=== PATIENT | female | born 1975 | race Caucasian/White ===

== ENCOUNTER 2016-04-25 14:03 | Observation (INO) | payer SELFPAY ==
[~2016-04-25] VITALS: Ht 170.2 cm; Wt 140.6 kg
[2016-04-25] MEDS ORDERED: IV NORMAL SALINE 1000ML BAG 1,000 ML IV SCH (15:46)
--- NOTE | 2016-04-25 15:53 | PHYS DOC ---
Past Medical History Past Medical History: Diabetes-Type II, GERD, Hypertension, Other Additional Past Medical Histor: MORBID OBESITY, HERNIAS, ULCERS Past Surgical History: Other Additional Past Surgical Histo: Hernia; multiple upper GI surgeries Alcohol Use: None Drug Use: None Adult General Chief Complaint Chief Complaint: CHEST PAIN HPI HPI Patient is a 41 year old female who presents with multiple complaints, however primary complaint is chest pain. Patient states that she has been having substernal chest pain as well as right-sided chest pain that radiates to her right shoulder. Patient has history of hypertension and diabetes mellitus type 2. The patient states that she is having pressure in her chest and states that she has been experiencing numbness in her left upper extremity but denies focal weakness. Patient denies any fevers. The patient states that she currently does not have insurance and has not been able to take medications for diabetes or hypertension due to financial restraints. Patient has had intermittent nausea but denies vomiting. Patient denies any fevers or diarrhea. Review of Systems Review of Systems Constitutional: Generalized weakness, anxiety, denies fever or chills [] Eyes: Denies change in visual acuity, redness, or eye pain [] HENT: Denies nasal congestion or sore throat [] Respiratory: Shortness of breath [] Cardiovascular: Chest pain [] GI: Denies abdominal pain, nausea, vomiting, bloody stools or diarrhea [] : Denies dysuria or hematuria [] Musculoskeletal: Denies back pain or joint pain [] Integument: Denies rash or skin lesions [] Neurologic: Left-sided numbness [] Current Medications Current Medications Current Medications Medications (Trade) Dose Ordered Sig/Caitlyn Start Time Stop Time Status Last Admin Dose Admin Aspirin (Children'S Aspirin) 324 mg 1X ONCE 04/25/16 16:00 04/25/16 16:01 DC 04/25/16 16:20 324 MG Fentanyl Citrate 50 mcg 50 mcg PRN Q15MIN PRN 04/25/16 16:00 04/26/16 15:59 04/25/16 18:23 50 MCG Sodium Chloride (Iv Sodium Chloride 0.9% 1000ml Bag) 1,000 ml @ 100 mls/hr Q10H 04/25/16 15:46 04/26/16 01:45 04/25/16 16:21 100 MLS/HR Allergies Allergies Allergies Coded Allergies Type Severity Reaction Last Updated Verified morphine Allergy Intermediate 03/13/15 Yes oxycodone Allergy Intermediate 11/01/15 Yes shellfish derived Allergy Intermediate Rash 07/13/13 Yes sulfamethoxazole Allergy Intermediate rash 05/16/13 Yes trimethoprim Allergy Intermediate rash 05/16/13 Yes Physical Exam Physical Exam Constitutional: Alert, afebrile, morbidly obese, appears in mild discomfort. [] HENT: Normocephalic, atraumatic, bilateral external ears normal, oropharynx moist, no oral exudates, nose normal. [] Eyes: PERRLA, EOMI, conjunctiva normal, no discharge. [] Neck: Normal range of motion, no tenderness, supple, no stridor. [] Cardiovascular: Tachycardia, regular rhythm, no murmur [] Lungs & Thorax: Bilateral breath sounds clear to auscultation [] Abdomen: Bowel sounds normal, soft, no tenderness, no masses, no pulsatile masses. [] Skin: Warm, dry, no erythema, no rash. [] Back: No tenderness, no CVA tenderness. [] Extremities: No tenderness, no cyanosis, no clubbing, ROM intact, no edema. [] Neurologic: Alert and oriented X 3, normal motor function, normal sensory function, no focal deficits noted. [] Current Patient Data Vital Signs Vital Signs Date Time Temp Pulse Resp B/P Pulse Ox O2 Delivery O2 Flow Rate FiO2 04/25/16 17:23 90 166/90 Room Air 04/25/16 16:53 94 04/25/16 16:24 2.0 04/25/16 16:23 23 04/25/16 14:15 98.4 98.4 Lab Values Laboratory Tests Test 04/25/16 14:30 04/25/16 14:41 04/25/16 15:50 04/25/16 16:07 White Blood Count 8.5x10^3/uL (4.0-11.0) Red Blood Count 5.01x10^6/uL (3.50-5.40) Hemoglobin 13.8g/dL (12.0-15.5) Hematocrit 41.7% (36.0-47.0) Mean Corpuscular Volume 83fL (79-100) Mean Corpuscular Hemoglobin 28pg (25-35) Mean Corpuscular Hemoglobin Concent 33g/dL (31-37) Red Cell Distribution Width 14.7% (11.5-14.5) H Platelet Count 209x10^3/uL (140-400) Neutrophils (%) (Auto) 76% (31-73) H Lymphocytes (%) (Auto) 15% (24-48) L Monocytes (%) (Auto) 6% (0-9) Eosinophils (%) (Auto) 2% (0-3) Basophils (%) (Auto) 1% (0-3) Neutrophils # (Auto) 6.4x10^3uL (1.8-7.7) Lymphocytes # (Auto) 1.2x10^3/uL (1.0-4.8) Monocytes # (Auto) 0.5x10^3/uL (0.0-1.1) Eosinophils # (Auto) 0.2x10^3/uL (0.0-0.7) Basophils # (Auto) 0.1x10^3/uL (0.0-0.2) Sodium Level 137mmol/L (136-145) Potassium Level 3.7mmol/L (3.5-5.1) Chloride Level 99mmol/L (98-107) Carbon Dioxide Level 27mmol/L (21-32) Anion Gap 11 (6-14) Blood Urea Nitrogen 13mg/dL (7-20) Creatinine 1.0mg/dL (0.6-1.0) Estimated GFR (Cockcroft-Gault) 61.1 Glucose Level 222mg/dL (70-99) H Calcium Level 9.4mg/dL (8.5-10.1) Magnesium Level 1.9mg/dL (1.8-2.4) Total Bilirubin 0.2mg/dL (0.2-1.0) Direct Bilirubin < 0.1mg/dL (0.0-0.2) Aspartate Amino Transferase (AST) 28U/L (15-37) Alanine Aminotransferase (ALT) 49U/L (14-59) Alkaline Phosphatase 92U/L (46-116) Creatine Kinase 76U/L (26-192) Creatine Kinase MB (Mass) < 0.5ng/mL (0.0-3.6) Creatine Kinase MB Relative Index % (0-4) Troponin I Quantitative < 0.017ng/mL (0.000-0.055) IR-Uvr-G-Type Natriuretic Peptide 40pg/mL (0-124) Total Protein 7.5g/dL (6.4-8.2) Albumin 3.6g/dL (3.4-5.0) Glucose (Fingerstick) 190mg/dL (70-99) H Urine Collection Type Unknown Urine Color Yellow Urine Clarity Clear Urine pH 5.5 Urine Specific [place] 1.010 Urine Protein Negativemg/dL (NEG-TRACE) Urine Glucose (UA) 100mg/dL (NEG) Urine Ketones (Stick) Negativemg/dL (NEG) Urine Blood Negative (NEG) Urine Nitrite Negative (NEG) Urine Bilirubin Negative (NEG) Urine Urobilinogen Dipstick 0.2mg/dL (0.2 mg/dL) Urine Leukocyte Esterase Negative (NEG) Urine RBC 0/HPF (0-2) Urine WBC Occ/HPF (0-4) Urine Squamous Epithelial Cells Few/LPF Urine Bacteria Moderate/HPF (0-FEW) POC Urine HCG, Qualitative hcg negative (Negative) Test 04/25/16 16:25 O2 Saturation 95% (92-99) Arterial Blood pH 7.41 (7.35-7.45) Arterial Blood pCO2 at Patient Temp 36mmHg (35-46) Arterial Blood pO2 at Patient Temp 77mmHg (75-108) Arterial Blood HCO3 23mmol/L (21-28) Arterial Blood Base Excess -2mmol/L (-3-3) FiO2 28.0 Laboratory Tests 04/25/16 14:30 Laboratory Tests 04/25/16 14:30 EKG EKG Interpreted by me: Heart rate 94, sinus rhythm, leftward axis, normal intervals , no acute ST/T-wave abnormalities present [] Radiology/Procedures Radiology/Procedures [facility] [address] [place] [address] IMAGING REPORT Signed PATIENT: NIKOLAS MCKENNA ACCOUNT: [id number] : 1975 LOCATION: ER AGE: 41 SEX: F EXAM STATUS: REG ER ORD. PHYSICIAN: NIDA GONZALEZ MD REASON: chest pain,PREG TEST PROCEDURE: PORTABLE CHEST 1V Portable AP upright view CXR: Clinical indications: Chest pain today. Comparison: November 01, 2015. Findings: No acute lung infiltrate or pleural effusion or pulmonary edema or lung mass or pneumothorax is seen. The heart size, pulmonary vasculature, mediastinum and both denise are stable. Impression: No acute radiographic abnormality is seen. DICTATED and SIGNED BY: MADELIN SHAH MD DATE: 04/25/16 1624 CC: NIDA GONZALEZ MD; NO PCP ~ [] Course & Med Decision Making Course & Med Decision Making Pertinent Labs and Imaging studies reviewed. (See chart for details) Patient was given IV fluids, aspirin, fentanyl, and Zofran. On reevaluation, patient states she has persistent pain at this time. Patient's initial lab work does not show evidence of ischemia. The patient does not feel well at this time and would like to be admitted. I spoke with Dr. Peña who accepted care patient under observation status for further care. Dragon Disclaimer Dragon Disclaimer This electronic medical record was generated, in whole or in part, using a voice recognition dictation system. Departure Departure Impression: Primary Impression: Chest pain Additional Impressions: Type 2 diabetes mellitus Hypertension Disposition: 09 ADMITTED INPATIENT Admitting Physician: Anh Peña Condition: STABLE Referrals: NO PCP (PCP) Problem Qualifiers Primary Impression: Chest pain Chest pain type: unspecified Qualified Code: R07.9 - Chest pain, unspecified Additional Impressions: Type 2 diabetes mellitus Diabetes mellitus complication status: with hyperglycemia Diabetes mellitus mcc insulin use: unspecified mcc insulin use status Qualified Code : E11.65 - Type 2 diabetes mellitus with hyperglycemia Hypertension Hypertension type: essential hypertension Qualified Code: I10 - Essential ( primary) hypertension NIDA GONZALEZ MD Apr 25, 2016 15:53
--- NOTE | 2016-04-25 15:53 | EKG ---
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
[2016-04-25 15:55] LABS: BASO # 0.1 x10^3/uL (0.0-0.2); BASO % 1 % (0-3); EOS % 2 % (0-3); HEMATOCRIT 41.7 % (36.0-47.0); HEMOGLOBIN 13.8 g/dL (12.0-15.5); LYMPH # 1.2 x10^3/uL (1.0-4.8); LYMPH % 15 % (24-48); MEAN CORPUSCULAR HEMOGLOBIN 28 pg (25-35); MEAN CORPUSCULAR HGB CONC 33 g/dL (31-37); MEAN CORPUSCULAR VOLUME 83 fL (79-100); MONO % 6 % (0-9); NEUT % 76 % (31-73); PLATELET COUNT 209 x10^3/uL (140-400); RED BLOOD COUNT 5.01 x10^6/uL (3.50-5.40); RED CELL DISTRIBUTION WIDTH 14.7 % (11.5-14.5); WHITE BLOOD COUNT 8.5 x10^3/uL (4.0-11.0)
[2016-04-25 15:59] LABS: BILIRUBIN,URINE NEGATIVE (NEG); GLUCOSE,URINE 100 mg/dL (NEG); NITRITE,URINE NEGATIVE (NEG); PH,URINE 5.5; PROTEIN,URINE NEGATIVE (NEG-TRACE); UROBILINOGEN,URINE 0.2 mg/dL (0.2 mg/dL)
[2016-04-25] MEDS ORDERED: ASPIRIN 81 MG TAB.CHEW PO ONE (16:00)
[2016-04-25 16:07] LABS: ANION GAP 11 (6-14); BLOOD UREA NITROGEN 13 mg/dL (7-20); CALCIUM 9.4 mg/dL (8.5-10.1); CARBON DIOXIDE 27 mmol/L (21-32); CHLORIDE 99 mmol/L (98-107); GFR 61.1; GLUCOSE 222 mg/dL (70-99); POTASSIUM 3.7 mmol/L (3.5-5.1); SODIUM 137 mmol/L (136-145)
[2016-04-25 16:12] LABS: ALBUMIN 3.6 g/dL (3.4-5.0); ALK PHOS 92 U/L (46-116); ALT (SGPT) 49 U/L (14-59); AST (SGOT) 28 U/L (15-37); DIRECT BILIRUBIN < 0.1 mg/dL (0.0-0.2); MAGNESIUM 1.9 mg/dL (1.8-2.4); TOTAL BILIRUBIN 0.2 mg/dL (0.2-1.0); TOTAL PROTEIN 7.5 g/dL (6.4-8.2)
[2016-04-25 16:14] LABS: BACTERIA,URINE MODERATE /HPF (0-FEW); RBC,URINE 0 /HPF (0-2); SQUAMOUS EPITHELIAL CELL,UR FEW /LPF; WBC,URINE OCC /HPF (0-4)
[2016-04-25 16:21] LABS: CREATINE KINASE 76 U/L (26-192)
[2016-04-25] MEDS: FENTANYL PF 100 MCG/2 ML VIAL. IV PRN ×2 (16:21→18:23)
[2016-04-25 16:22] LABS: CKMB MASS < 0.5 ng/mL (0.0-3.6)
[2016-04-25 16:27] LABS: HCO3 ABG 23 mmol/L (21-28); PCO2 ABG 36 mmHg (35-46); PH ABG 7.41 (7.35-7.45); PO2 ABG 77 mmHg (75-108); SAT O2 ABG 95 % (92-99)
--- NOTE | 2016-04-25 17:18 | RAD ---
Portable AP upright view CXR: Clinical indications: Chest pain today. Comparison: November 01, 2015. Findings: No acute lung infiltrate or pleural effusion or pulmonary edema or lung mass or pneumothorax is seen. The heart size, pulmonary vasculature, mediastinum and both denise are stable. Impression: No acute radiographic abnormality is seen.
[2016-04-25 20:30] VITALS: BP 148/101
[2016-04-25] MEDS: IV NORMAL SALINE 1000ML BAG 1,000 ML IV SCH (20:50)
[2016-04-25] MEDS ORDERED: FENTANYL PF 100 MCG/2 ML VIAL. IV PRN (21:00)
[2016-04-25] MEDS ORDERED: ACETAMINOPHEN 325 MG TABLET. PO PRN (21:00)
[2016-04-25] MEDS ORDERED: ONDANSETRON PF 4 MG/2 ML VIAL. IV PRN (21:00)
[2016-04-25] MEDS ORDERED: DEXTROSE 50% 25 GM / 50ML DISP.SYRIN. IV PRN (21:15)
[2016-04-25] MEDS ORDERED: POTASSIUM CHLORIDE 20 MEQ TABLET.ER. PO ONE (21:30)
[2016-04-25] MEDS ORDERED: LIDO:MAALOX:DONNATAL 1:1:1 15 ML SINGLE DOSE SWSW PRN (21:30)
[2016-04-25] MEDS ORDERED: ENOXAPARIN 40 MG/0.4 ML DISP.SYRIN. SQ SCH (21:30)
[2016-04-25] MEDS ORDERED: PANTOPRAZOLE 40 MG TABLET. PO ONE (21:30)
--- NOTE | 2016-04-25 21:43 | PDOC1 ---
History and Physical Date of Admission Date of Admission DATE: 04/25/16 TIME: 21:42 Identification/Chief Complaint Chief Complaint multiple, chest pain, back pain, "feeling unwell" Source Source: Chart review, Patient History of Present Illness History of Present Illness Ms. Stoner is a 41 year old female admit from ER w/ chest pain. 10/25 substernal chest pain as well as right-sided to her right shoulder. She reports no insurance, could not get medical care, is worried about multiple things, DM2, htn, possible thyroid dysfunction, and she keeps repeating that she does not feel well and "knows something is wrong" She cannot articulate what exactly that means, but chest pressure and insomnia and numbness of her left arm at times, better currently she is not taking any medicines for htn for Dm2 current she believes she should apply for disability due to her arm weakness and leg pain and back pain, severe knee pain OA Past Medical History Cardiovascular: No pertinent hx Pulmonary: No pertinent hx GI: No pertinent hx Heme/Onc: No pertinent hx Hepatobiliary: No pertinent hx Psych: Anxiety Musculoskeletal: low back pain Family History Family History: No Significant Social History Smoke: No ALCOHOL: none Drugs: None Current Problem List Problem List Problems Medical Problems: (1) Chest pain Status: Acute Problems: Current Medications Current Medications Current Medications Aspirin (Children'S Aspirin) 324 mg 1X ONCE PO Last administered on 04/25/16 16:20; Start 04/25/16 at 16:00; Stop 04/25/16 at 16:01; Status DC Fentanyl Citrate 50 mcg 50 mcg PRN Q15MIN PRN IV PAIN GREATER THAN 3/10 Last administered on 04/25/16 18:23; Start 04/25/16 at 16:00; Stop 04/26/16 at 15:59 Sodium Chloride (Iv Sodium Chloride 0.9% 1000ml Bag) 1,000 ml @ 100 mls/hr Q10H IV Last administered on 04/25/16 16:21; Start 04/25/16 at 15:46; Stop at 01:45 Ondansetron HCl (Zofran) 4 mg PRN Q8HRS PRN IV NAUSEA/VOMITING; Start 04/25/16 at 21:00; Stop 04/26/16 at 20:59 Fentanyl Citrate 50 mcg 50 mcg PRN Q2HR PRN IV PAIN; Start 04/25/16 at 21:00; Stop 04/26/16 at 20:59 Sodium Chloride (Iv Sodium Chloride 0.9% 1000ml Bag) 1,000 ml @ 125 mls/hr Q8H IV Last administered on 04/25/16t 20:50; Start 04/25/16 at 20:50; Stop 04/26/16 at 20:49 Acetaminophen (Tylenol) 650 mg PRN Q4HRS PRN PO FEVER; Start 04/25/16 at 21:00; Stop 04/26/16 at 20:59 Potassium Chloride (Klor-Con) 40 meq 1X ONCE PO ; Start 04/25/16 at 21:30; Stop 04/25/16 at 21:31; Status DC Multi-Ingredient Mouthwash/Gargle (Gi Cocktail Single Dose) 15 ml PRN 1X PRN SWSW CHEST PAIN; Start 04/25/16 at 21:30 Pantoprazole Sodium (Protonix) 40 mg DAILYAC PO ; Start 04/26/16 at 07:30 Pantoprazole Sodium (Protonix) 40 mg 1X ONCE PO ; Start 04/25/16 at 21:30; Stop 04/25/16 at 21:31; Status DC Insulin Aspart (Novolog) 0-7 UNITS TIDWMEALS SQ ; Start 04/26/16 at 08:00 Dextrose 12.5 gm PRN Q15MIN PRN IV SEE COMMENTS; Start 04/25/16 at 21:15 Enoxaparin Sodium (Lovenox Per Pharmacy Prophylaxis Dosing) 1 each PRN DAILY PRN MC SEE COMMENTS; Start 04/25/16 at 21:30 Enoxaparin Sodium (Lovenox 40mg Syringe) 40 mg Q24H SQ ; Start 04/25/16 at 21:30 Zolpidem Tartrate (Ambien) 5 mg PRN QHS PRN PO INSOMNIA; Start 04/25/16 at 21:45 ; Status UNV Active Scripts Active Allergies Allergies: Coded Allergies: morphine (Verified Allergy, Intermediate, 03/13/15) oxycodone (Verified Allergy, Intermediate, 11/01/15) shellfish derived (Verified Allergy, Intermediate, Rash, 07/13/13) sulfamethoxazole (Verified Allergy, Intermediate, rash, 05/16/13) trimethoprim (Verified Allergy, Intermediate, rash, 05/16/13) ROS General: YES: Appetite, Fatigue, Malaise, No: Chills, Night Sweats, Other PSYCHOLOGICAL ROS: YES: Anxiety, Irritablity, No: Behavioral Disorder, Concentration difficultie, Decreased libido, Depression, Disorientation, Hallucinations, Hostility, Memory difficulties, Mood Swings, Obsessive thoughts, Other, Physical abuse, Sexual abuse, Sleep disturbances, Suicidal ideation Eyes: No Blurry vision, No Decreased vision, No Double vision, No Dry eyes, No Excessive tearing, No Eye Pain, No Itchy Eyes, No Loss of vision, No Other, No Photophobia, No Scotomata, No Uses contacts, No Uses glasses HEENT: YES: Heacaches, No: Epistaxis, Hearing change, Nasal congestion, Nasal discharge, Oral lesions, Other, Sinus pain, Sneezing, Snoring, Sore Throat, Tinnitus, Vertigo, Visual Changes, Vocal changes Respiratory: No: Cough, Hemoptysis, Orthopnea, Other, Pleuritic Pain, SOB with excertion, Shortness of breath, Sputum Changes, Stridor, Tachypnea, Wheezing Cardiovascular: yes Chest Pain, No Edema, No Lt Headedness, No Orthopnea, No Other, No Palpitations, No Paroxysmal Noc. Dyspnea Gastrointestinal: Yes Nausea, No Abdominal Pain, No Constipation, No Diarrhea, No Hematochezia, No Melena, No Other, No Vomiting Genitourinary: No , No , No , No , No , No , No , No Discharge, No Dysuria, No Flank Pain, No Frequency, No Hematuria, No Incontinence, No Other, No Pain, No Retention, No Urgency Musculoskeletal: Yes Gait Disturbance, Yes Joint Pain, Yes Joint Stiffness, Yes Joint Swelling, Yes Muscle Pain, Yes Muscular Weakness, Yes Pain In:, Yes Swelling In: (knee) Neurological: No Behavorial Changes, No Bowel/Bladder ControlChng, No Confusion , No Dizziness, No Gait Disturbance, No Headaches, No Impaired Coord/balance, No Memory Loss, No Numbness/Tingling, No Other, No Seizures, No Speech Problems , No Tremors, No Visual Changes, No Weakness Skin: Yes Dry Skin, No Acne, No Eczema, No Hair Changes, No Lumps, No Mole Changes, No Mottling, No Nail Changes, No Other, No Pruritus, No Rash, No Skin Lesion Changes Physical Exam General: Alert, Oriented X3, Cooperative, mild distress HEENT: Atraumatic, PERRLA, EOMI, Other (exopthalmos, and blepharosis) Lungs: Clear to auscultation, Normal air movement, Other (dorsocervical fat pad ) Heart: S1S2, no murmurs Abdomen: Normal bowel sounds, Soft Rectal Exam: not examined Extremities: No clubbing Skin: No rashes Neuro: Normal tone, Sensation intact, Cranial nerves 3-12 NL Psych/Mental Status: Other (odd affect, facial ticks) Vitals Vitals Vital Signs Date Time Temp Pulse Resp B/P Pulse Ox O2 Delivery O2 Flow Rate FiO2 04/25/16 19:50 87 17 151/101 94 Room Air 04/25/16 16:24 2.0 04/25/16 14:15 98.4 98.4 Labs Labs Laboratory Tests Test 04/25/16 14:30 04/25/16 14:41 04/25/16 15:50 04/25/16 16:07 White Blood Count 8.5x10^3/uL (4.0-11.0) Red Blood Count 5.01x10^6/uL (3.50-5.40) Hemoglobin 13.8g/dL (12.0-15.5) Hematocrit 41.7% (36.0-47.0) Mean Corpuscular Volume 83fL (79-100) Mean Corpuscular Hemoglobin 28pg (25-35) Mean Corpuscular Hemoglobin Concent 33g/dL (31-37) Red Cell Distribution Width 14.7% (11.5-14.5) Platelet Count 209x10^3/uL (140-400) Neutrophils (%) (Auto) 76% (31-73) Lymphocytes (%) (Auto) 15% (24-48) Monocytes (%) (Auto) 6% (0-9) Eosinophils (%) (Auto) 2% (0-3) Basophils (%) (Auto) 1% (0-3) Neutrophils # (Auto) 6.4x10^3uL (1.8-7.7) Lymphocytes # (Auto) 1.2x10^3/uL (1.0-4.8) Monocytes # (Auto) 0.5x10^3/uL (0.0-1.1) Eosinophils # (Auto) 0.2x10^3/uL (0.0-0.7) Basophils # (Auto) 0.1x10^3/uL (0.0-0.2) Sodium Level 137mmol/L (136-145) Potassium Level 3.7mmol/L (3.5-5.1) Chloride Level 99mmol/L (98-107) Carbon Dioxide Level 27mmol/L (21-32) Anion Gap 11 (6-14) Blood Urea Nitrogen 13mg/dL (7-20) Creatinine 1.0mg/dL (0.6-1.0) Estimated GFR (Cockcroft-Gault) 61.1 Glucose Level 222mg/dL (70-99) Calcium Level 9.4mg/dL (8.5-10.1) Magnesium Level 1.9mg/dL (1.8-2.4) Total Bilirubin 0.2mg/dL (0.2-1.0) Direct Bilirubin < 0.1mg/dL (0.0-0.2) Aspartate Amino Transf (AST/SGOT) 28U/L (15-37) Alanine Aminotransferase (ALT/SGPT) 49U/L (14-59) Alkaline Phosphatase 92U/L (46-116) Creatine Kinase 76U/L (26-192) Creatine Kinase MB (Mass) < 0.5ng/mL (0.0-3.6) Creatine Kinase MB Relative Index % (0-4) Troponin I Quantitative < 0.017ng/mL (0.000-0.055) ZB-Tib-G-Type Natriuretic Peptide 40pg/mL (0-124) Total Protein 7.5g/dL (6.4-8.2) Albumin 3.6g/dL (3.4-5.0) Glucose (Fingerstick) 190mg/dL (70-99) Urine Collection Type Unknown Urine Color Yellow Urine Clarity Clear Urine pH 5.5 Urine Specific [place] 1.010 Urine Protein Negativemg/dL (NEG-TRACE) Urine Glucose (UA) 100mg/dL (NEG) Urine Ketones (Stick) Negativemg/dL (NEG) Urine Blood Negative (NEG) Urine Nitrite Negative (NEG) Urine Bilirubin Negative (NEG) Urine Urobilinogen Dipstick 0.2mg/dL (0.2 mg/dL) Urine Leukocyte Esterase Negative (NEG) Urine RBC 0/HPF (0-2) Urine WBC Occ/HPF (0-4) Urine Squamous Epithelial Cells Few/LPF Urine Bacteria Moderate/HPF (0-FEW) Bedside Urine HCG, Qualitative hcg negative (Negative) Test 04/25/16 16:25 O2 Saturation 95% (92-99) Arterial Blood pH 7.41 (7.35-7.45) Arterial Blood pCO2 at Patient Temp 36mmHg (35-46) Arterial Blood pO2 at Patient Temp 77mmHg (75-108) Arterial Blood HCO3 23mmol/L (21-28) Arterial Blood Base Excess -2mmol/L (-3-3) FiO2 28.0 Laboratory Tests Test 04/25/16 14:30 04/25/16 14:41 04/25/16 15:50 04/25/16 16:07 White Blood Count 8.5x10^3/uL (4.0-11.0) Red Blood Count 5.01x10^6/uL (3.50-5.40) Hemoglobin 13.8g/dL (12.0-15.5) Hematocrit 41.7% (36.0-47.0) Mean Corpuscular Volume 83fL (79-100) Mean Corpuscular Hemoglobin 28pg (25-35) Mean Corpuscular Hemoglobin Concent 33g/dL (31-37) Red Cell Distribution Width 14.7% (11.5-14.5) Platelet Count 209x10^3/uL (140-400) Neutrophils (%) (Auto) 76% (31-73) Lymphocytes (%) (Auto) 15% (24-48) Monocytes (%) (Auto) 6% (0-9) Eosinophils (%) (Auto) 2% (0-3) Basophils (%) (Auto) 1% (0-3) Neutrophils # (Auto) 6.4x10^3uL (1.8-7.7) Lymphocytes # (Auto) 1.2x10^3/uL (1.0-4.8) Monocytes # (Auto) 0.5x10^3/uL (0.0-1.1) Eosinophils # (Auto) 0.2x10^3/uL (0.0-0.7) Basophils # (Auto) 0.1x10^3/uL (0.0-0.2) Sodium Level 137mmol/L (136-145) Potassium Level 3.7mmol/L (3.5-5.1) Chloride Level 99mmol/L (98-107) Carbon Dioxide Level 27mmol/L (21-32) Anion Gap 11 (6-14) Blood Urea Nitrogen 13mg/dL (7-20) Creatinine 1.0mg/dL (0.6-1.0) Estimated GFR (Cockcroft-Gault) 61.1 Glucose Level 222mg/dL (70-99) Calcium Level 9.4mg/dL (8.5-10.1) Magnesium Level 1.9mg/dL (1.8-2.4) Total Bilirubin 0.2mg/dL (0.2-1.0) Direct Bilirubin < 0.1mg/dL (0.0-0.2) Aspartate Amino Transf (AST/SGOT) 28U/L (15-37) Alanine Aminotransferase (ALT/SGPT) 49U/L (14-59) Alkaline Phosphatase 92U/L (46-116) Creatine Kinase 76U/L (26-192) Creatine Kinase MB (Mass) < 0.5ng/mL (0.0-3.6) Creatine Kinase MB Relative Index % (0-4) Troponin I Quantitative < 0.017ng/mL (0.000-0.055) JA-Ykr-W-Type Natriuretic Peptide 40pg/mL (0-124) Total Protein 7.5g/dL (6.4-8.2) Albumin 3.6g/dL (3.4-5.0) Glucose (Fingerstick) 190mg/dL (70-99) Urine Collection Type Unknown Urine Color Yellow Urine Clarity Clear Urine pH 5.5 Urine Specific [place] 1.010 Urine Protein Negativemg/dL (NEG-TRACE) Urine Glucose (UA) 100mg/dL (NEG) Urine Ketones (Stick) Negativemg/dL (NEG) Urine Blood Negative (NEG) Urine Nitrite Negative (NEG) Urine Bilirubin Negative (NEG) Urine Urobilinogen Dipstick 0.2mg/dL (0.2 mg/dL) Urine Leukocyte Esterase Negative (NEG) Urine RBC 0/HPF (0-2) Urine WBC Occ/HPF (0-4) Urine Squamous Epithelial Cells Few/LPF Urine Bacteria Moderate/HPF (0-FEW) Bedside Urine HCG, Qualitative hcg negative (Negative) Test 04/25/16 16:25 O2 Saturation 95% (92-99) Arterial Blood pH 7.41 (7.35-7.45) Arterial Blood pCO2 at Patient Temp 36mmHg (35-46) Arterial Blood pO2 at Patient Temp 77mmHg (75-108) Arterial Blood HCO3 23mmol/L (21-28) Arterial Blood Base Excess -2mmol/L (-3-3) FiO2 28.0 VTE Prophylaxis Ordered VTE Prophylaxis Devices: No VTE Pharmacological Prophylaxi: Yes Assessment/Plan Assessment/Plan chest pain, angina, r/o anxiety d/o, insomnia, try ambien, benadryl morbid obesity, BMI 43, dorsocervical fat pad, check AM cortisol to screen, consider supression test check TSH, T3, T4, exopthalmos on exam, multiple drug allergies odd behavior, possible psych disorder, MERCEDES SOLOMON MD Apr 25, 2016 21:43
[2016-04-25] MEDS ORDERED: DIPHENHYDRAMINE HCL 25 MG CAPSULE PO PRN (21:45)
[2016-04-25] MEDS ORDERED: ZOLPIDEM 5 MG TABLET. PO PRN (21:45)
[2016-04-25 22:59] VITALS: BP 153/98
[2016-04-25 23:00] VITALS: BP 149/95
[2016-04-26] MEDS: IV NORMAL SALINE 1000ML BAG 1,000 ML IV SCH ×2 (03:03→13:08)
[2016-04-26 03:30] VITALS: BP 143/89
[2016-04-26 04:43] LABS: BASO % 1 % (0-3); EOS % 4 % (0-3); HEMATOCRIT 39.2 % (36.0-47.0); LYMPH # 1.5 x10^3/uL (1.0-4.8); LYMPH % 25 % (24-48); MEAN CORPUSCULAR HEMOGLOBIN 27 pg (25-35); MEAN CORPUSCULAR HGB CONC 33 g/dL (31-37); MEAN CORPUSCULAR VOLUME 83 fL (79-100); MONO % 9 % (0-9); NEUT % 61 % (31-73); PLATELET COUNT 186 x10^3/uL (140-400); RED BLOOD COUNT 4.75 x10^6/uL (3.50-5.40); RED CELL DISTRIBUTION WIDTH 14.6 % (11.5-14.5); WHITE BLOOD COUNT 5.9 x10^3/uL (4.0-11.0)
[2016-04-26 05:02] LABS: CALCIUM 8.7 mg/dL (8.5-10.1); CREATININE 0.7 mg/dL (0.6-1.0); GFR 92.2
[2016-04-26 05:18] LABS: CHOLESTEROL/HDL RATIO 6.9
[2016-04-26 07:30] VITALS: BP 134/89
[2016-04-26] MEDS: INSULIN ASPART 300 UNITS/3 ML INSULN.PEN SQ SCH ×2 (08:00→12:09)
[2016-04-26] MEDS: PANTOPRAZOLE 40 MG TABLET. PO SCH ×2 (09:22→12:03)
--- NOTE | 2016-04-26 11:04 | PDOC2 ---
TABATHA HENDRICKS [facility] [employer] COORDINATOR 04/26/16 1104: CARDIAC CONSULT DATE OF CONSULT Date of Consult DATE: 04/26/16 TIME: 10:41 REASON FOR CONSULT Reason for Consult: Chest pain REFERRING PHYSICIAN Referring Physician: Korina SOURCE Source: Chart review, Patient HISTORY OF PRESENT ILLNESS HISTORY OF PRESENT ILLNESS This is a 41 yo female admitted for complains of chest pain. This was retrosternal, achy localized with no radiation. Has had some nausea bu no vomiting. She does have occasional hot flashes but no significant difference. Denies any SOA. She could not tell the the duration of her chest pain but it was on and off this weekend. Her chest pain is reproducible for both deep inspiration and palpation. She has hiatal hernia according to her and she does not take any OTC or Rx medications because she could not afford it. Alos PUD in the past. She has nasal congestion blaming it on her sinus but no fever or chills. Reports that she has been feeling achy in the last few days. She finally decided to go to an outpt clinic to have her BG and BP evaluated which she does not take medications for. Reports that she was diagnosed with this in 01/2016 but she just could not afford the medications. Denies any palpitations , dizziness. Denies CAD, VTE, falls or any recent injury. PAST MEDICAL HISTORY Cardiovascular: HTN Pulmonary: No pertinent hx CENTRAL NERVOUS SYSTEM: Other (No pertinent history) GI: GERD, Peptic Ulcer disease Heme/Onc: No pertinent hx Hepatobiliary: No pertinent hx Psych: Anxiety Musculoskeletal: Osteoarthritis Rheumatologic: No pertinent hx Infectious disease: No pertinent hx ENT: No pertinent hx Renal/: No pertinent hx Endocrine: Diabetes (2) Dermatology: No pertinent hx PAST SURGICAL HISTORY Past Surgical History: Hernia Repair, Other (PUD repair) FAMILY HISTORY Family History: Coronary Artery Disease (mother) SOCIAL HISTORY Smoke: No ALCOHOL: none Drugs: None Lives: with Family CURRENT MEDICATIONS CURRENT MEDICATIONS Current Medications Medications (Trade) Dose Ordered Sig/Caitlyn Route PRN Reason Start Time Stop Time Status Last Admin Dose Admin Aspirin (Children'S Aspirin) 324 mg 1X ONCE PO 04/25/16 16:00 04/25/16 16:01 DC 04/25/16 16:20 Fentanyl Citrate 50 mcg 50 mcg PRN Q15MIN PRN IV PAIN GREATER THAN 3/10 04/25/16 16:00 04/26/16 15:59 04/25/16 18:23 Sodium Chloride 1,000 ml @ 100 mls/hr Q10H IV 04/25/16 15:46 04/26/16 01:46 DC 04/25/16 16:21 Sodium Chloride (Iv Sodium Chloride 0.9% 1000ml Bag) 1,000 ml @ 125 mls/hr Q8H IV 04/25/16 20:50 04/26/16 20:49 04/26/16 03:03 Potassium Chloride (Klor-Con) 40 meq 1X ONCE PO 04/25/16 21:30 04/25/16 21:31 DC 04/25/16 23:08 Pantoprazole Sodium (Protonix) 40 mg 1X ONCE PO 04/25/16 21:30 04/25/16 21:31 DC 04/25/16 23:09 Enoxaparin Sodium (Lovenox 40mg Syringe) 40 mg Q24H SQ 04/25/16 21:30 04/25/16 23:07 Zolpidem Tartrate (Ambien) 5 mg PRN QHS PRN PO INSOMNIA 04/25/16 21:45 04/25/16 23:09 Diphenhydramine HCl (Benadryl) 25 mg PRN Q6HRS PRN PO ITCHING 04/25/16 21:45 04/25/16 23:09 ALLERGIES ALLERGIES: Coded Allergies: morphine (Verified Allergy, Intermediate, 03/13/15) oxycodone (Verified Allergy, Intermediate, 11/01/15) shellfish derived (Verified Allergy, Intermediate, Rash, 07/13/13) sulfamethoxazole (Verified Allergy, Intermediate, rash, 05/16/13) trimethoprim (Verified Allergy, Intermediate, rash, 05/16/13) ROS Review of System 14 point ROS evaluated with pertinent positives noted per HPI PHYSICAL EXAM General: Alert, Oriented X3, Cooperative, No acute distress HEENT: Atraumatic, Mucous membr. moist/pink Lungs: Clear to auscultation, Normal air movement Heart: Regular rate, Normal S1, Normal S2, No murmurs Abdomen: Soft, No tenderness, Other (obese) Extremities: No cyanosis, No edema Skin: No breakdown, No significant lesion Neuro: Normal speech, Sensation intact Psych/Mental Status: Mental status NL, Mood NL, Other (anxiety) MUSCULOSKELETAL: Full range of motion without pain, Other (palpable tenderness to epigastric and mid chest wall) VITALS VITALS Vital Signs Date Time Temp Pulse Resp B/P Pulse Ox O2 Delivery O2 Flow Rate FiO2 04/26/16 08:00 Room Air 04/26/16 07:30 97.9 82 18 134/89 95 97.9 04/25/16 16:24 2.0 LABS Lab: Laboratory Tests Test 04/25/16 14:30 04/25/16 14:41 04/25/16 15:50 04/25/16 16:07 White Blood Count 8.5x10^3/uL (4.0-11.0) Red Blood Count 5.01x10^6/uL (3.50-5.40) Hemoglobin 13.8g/dL (12.0-15.5) Hematocrit 41.7% (36.0-47.0) Mean Corpuscular Volume 83fL (79-100) Mean Corpuscular Hemoglobin 28pg (25-35) Mean Corpuscular Hemoglobin Concent 33g/dL (31-37) Red Cell Distribution Width 14.7% (11.5-14.5) Platelet Count 209x10^3/uL (140-400) Neutrophils (%) (Auto) 76% (31-73) Lymphocytes (%) (Auto) 15% (24-48) Monocytes (%) (Auto) 6% (0-9) Eosinophils (%) (Auto) 2% (0-3) Basophils (%) (Auto) 1% (0-3) Neutrophils # (Auto) 6.4x10^3uL (1.8-7.7) Lymphocytes # (Auto) 1.2x10^3/uL (1.0-4.8) Monocytes # (Auto) 0.5x10^3/uL (0.0-1.1) Eosinophils # (Auto) 0.2x10^3/uL (0.0-0.7) Basophils # (Auto) 0.1x10^3/uL (0.0-0.2) Sodium Level 137mmol/L (136-145) Potassium Level 3.7mmol/L (3.5-5.1) Chloride Level 99mmol/L (98-107) Carbon Dioxide Level 27mmol/L (21-32) Anion Gap 11 (6-14) Blood Urea Nitrogen 13mg/dL (7-20) Creatinine 1.0mg/dL (0.6-1.0) Estimated GFR (Cockcroft-Gault) 61.1 Glucose Level 222mg/dL (70-99) Calcium Level 9.4mg/dL (8.5-10.1) Magnesium Level 1.9mg/dL (1.8-2.4) Total Bilirubin 0.2mg/dL (0.2-1.0) Direct Bilirubin < 0.1mg/dL (0.0-0.2) Aspartate Amino Transf (AST/SGOT) 28U/L (15-37) Alanine Aminotransferase (ALT/SGPT) 49U/L (14-59) Alkaline Phosphatase 92U/L (46-116) Creatine Kinase 76U/L (26-192) Creatine Kinase MB (Mass) < 0.5ng/mL (0.0-3.6) Creatine Kinase MB Relative Index % (0-4) Troponin I Quantitative < 0.017ng/mL (0.000-0.055) NJ-Nba-W-Type Natriuretic Peptide 40pg/mL (0-124) Total Protein 7.5g/dL (6.4-8.2) Albumin 3.6g/dL (3.4-5.0) Glucose (Fingerstick) 190mg/dL (70-99) Urine Collection Type Unknown Urine Color Yellow Urine Clarity Clear Urine pH 5.5 Urine Specific [place] 1.010 Urine Protein Negativemg/dL (NEG-TRACE) Urine Glucose (UA) 100mg/dL (NEG) Urine Ketones (Stick) Negativemg/dL (NEG) Urine Blood Negative (NEG) Urine Nitrite Negative (NEG) Urine Bilirubin Negative (NEG) Urine Urobilinogen Dipstick 0.2mg/dL (0.2 mg/dL) Urine Leukocyte Esterase Negative (NEG) Urine RBC 0/HPF (0-2) Urine WBC Occ/HPF (0-4) Urine Squamous Epithelial Cells Few/LPF Urine Bacteria Moderate/HPF (0-FEW) Bedside Urine HCG, Qualitative hcg negative (Negative) Test 04/25/16 16:25 04/25/16 21:24 04/26/16 04:30 04/26/16 07:45 O2 Saturation 95% (92-99) Arterial Blood pH 7.41 (7.35-7.45) Arterial Blood pCO2 at Patient Temp 36mmHg (35-46) Arterial Blood pO2 at Patient Temp 77mmHg (75-108) Arterial Blood HCO3 23mmol/L (21-28) Arterial Blood Base Excess -2mmol/L (-3-3) FiO2 28.0 Glucose (Fingerstick) 163mg/dL (70-99) 150mg/dL (70-99) White Blood Count 5.9x10^3/uL (4.0-11.0) Red Blood Count 4.75x10^6/uL (3.50-5.40) Hemoglobin 13.0g/dL (12.0-15.5) Hematocrit 39.2% (36.0-47.0) Mean Corpuscular Volume 83fL (79-100) Mean Corpuscular Hemoglobin 27pg (25-35) Mean Corpuscular Hemoglobin Concent 33g/dL (31-37) Red Cell Distribution Width 14.6% (11.5-14.5) Platelet Count 186x10^3/uL (140-400) Neutrophils (%) (Auto) 61% (31-73) Lymphocytes (%) (Auto) 25% (24-48) Monocytes (%) (Auto) 9% (0-9) Eosinophils (%) (Auto) 4% (0-3) Basophils (%) (Auto) 1% (0-3) Neutrophils # (Auto) 3.6x10^3uL (1.8-7.7) Lymphocytes # (Auto) 1.5x10^3/uL (1.0-4.8) Monocytes # (Auto) 0.5x10^3/uL (0.0-1.1) Eosinophils # (Auto) 0.2x10^3/uL (0.0-0.7) Basophils # (Auto) 0.0x10^3/uL (0.0-0.2) Sodium Level 140mmol/L (136-145) Potassium Level 4.0mmol/L (3.5-5.1) Chloride Level 102mmol/L (98-107) Carbon Dioxide Level 29mmol/L (21-32) Anion Gap 9 (6-14) Blood Urea Nitrogen 11mg/dL (7-20) Creatinine 0.7mg/dL (0.6-1.0) Estimated GFR (Cockcroft-Gault) 92.2 Glucose Level 166mg/dL (70-99) Calcium Level 8.7mg/dL (8.5-10.1) Troponin I Quantitative < 0.017ng/mL (0.000-0.055) Triglycerides Level 418mg/dL (0-150) Cholesterol Level 207mg/dL (0-200) LDL Cholesterol, Calculated 93mg/dL (0-100) VLDL Cholesterol, Calculated 84mg/dL (0-40) HDL Cholesterol 30mg/dL (40-60) Cholesterol/HDL Ratio 6.9 Thyroid Stimulating Hormone (TSH) 2.930uIU/mL (0.358-3.74) Free Thyroxine 1.00ng/dL (0.76-1.46) Free Triiodothyronine (T3) pg/mL 3.32pg/mL (2.18-3.98) Test 04/26/16 08:50 Troponin I Quantitative < 0.017ng/mL (0.000-0.055) ASSESSMENT/PLAN ASSESSMENT/PLAN 1. Atypical chest pain: reproducible, suspect GI/anxiety 2. Anxiety/panic attack 3. HTN: better 4. DLP 5. GERD with likely exacerbation with Hx of hiatal hernia/PUD with repair 2007 6. DM2 7. Noncompliance: mainly due to financial constraints 8. Morbid obesity: BMI 48 9. Viral syndrome? Recommendations 1. TTE. If no significant changes then no further diagnostics 2. GERD control per PCP 3. Will need anxiety coverage, defer to PCP 4. Tailor made BG and BP medications per 4$ list. 5. Lifestyle modifications 6. Daily ECASA 81 mg, lisinopril 5/HCTZ 12.5, Fish oil/lopid Problems: ABIDA TORRES MD 04/26/16 1919: CARDIAC CONSULT ALLERGIES ALLERGIES: Coded Allergies: morphine (Verified Allergy, Intermediate, 03/13/15) oxycodone (Verified Allergy, Intermediate, 11/01/15) shellfish derived (Verified Allergy, Intermediate, Rash, 07/13/13) sulfamethoxazole (Verified Allergy, Intermediate, rash, 05/16/13) trimethoprim (Verified Allergy, Intermediate, rash, 05/16/13) TABATHA HENDRICKS APRN Apr 26, 2016 11:04 ABIDA TORRES MD Apr 26, 2016 23:19
[2016-04-26 11:07] VITALS: BP 140/91
[2016-04-26 11:20] VITALS: BP 140/91
[2016-04-26] MEDS ORDERED: HYDROCHLOROTHIAZIDE 12.5 MG CAPSULE. PO SCH (11:30)
[2016-04-26] MEDS ORDERED: LISINOPRIL 5 MG TABLET. PO SCH (11:30)
[2016-04-26] MEDS ORDERED: ASPIRIN ENTERIC COATED 81 MG TABLET.DR. PO SCH (11:30)
[2016-04-26] MEDS ORDERED: LORAZEPAM 2 MG/ML VIAL IV PRN (13:45)
[2016-04-26] MEDS ORDERED: LISI-338 PO (14:11)
[2016-04-26] MEDS ORDERED: METF500T4 PO (14:11)
[2016-04-26] MEDS ORDERED: LORA0.5T96 PO (14:11)
[2016-04-26] MEDS ORDERED: ASPI81TA9 PO (14:11)
--- NOTE | 2016-04-26 14:15 | PDOC3 ---
Discharge Summary Visit Information Date of Admission: Apr 25, 2016 Date of Discharge: Apr 26, 2016 Admitting Diagnosis: chest pain Final Diagnosis 1. Atypical chest pain: reproducible, anxiety 2. Anxiety disorder 3. HTN: 4. DLP 5. GERD , prior hiatal hernia/PUD with repair 2007 6. DM2, barely 7. Noncompliance due to uninsured 8. Morbid obesity: BMI 48 Problems Medical Problems: (1) Back pain Status: Acute (2) Chest pain Status: Acute (3) Hypertension Status: Acute (4) Type 2 diabetes mellitus Status: Acute Brief Hospital Course Allergies Allergies Coded Allergies Type Severity Reaction Last Updated Verified morphine Allergy Intermediate 03/13/15 Yes oxycodone Allergy Intermediate 11/01/15 Yes shellfish derived Allergy Intermediate Rash 07/13/13 Yes sulfamethoxazole Allergy Intermediate rash 05/16/13 Yes trimethoprim Allergy Intermediate rash 05/16/13 Yes Vital Signs Vital Signs Date Time Temp Pulse Resp B/P Pulse Ox O2 Delivery O2 Flow Rate FiO2 04/26/16 11:20 22 140/91 04/26/16 11:07 98.1 22 96 Room Air 98.1 04/25/16 16:24 2.0 Lab Results Laboratory Tests Test 04/25/16 14:30 04/25/16 14:41 04/25/16 15:50 04/25/16 16:07 White Blood Count 8.5x10^3/uL (4.0-11.0) Red Blood Count 5.01x10^6/uL (3.50-5.40) Hemoglobin 13.8g/dL (12.0-15.5) Hematocrit 41.7% (36.0-47.0) Mean Corpuscular Volume 83fL (79-100) Mean Corpuscular Hemoglobin 28pg (25-35) Mean Corpuscular Hemoglobin Concent 33g/dL (31-37) Red Cell Distribution Width 14.7% (11.5-14.5) Platelet Count 209x10^3/uL (140-400) Neutrophils (%) (Auto) 76% (31-73) Lymphocytes (%) (Auto) 15% (24-48) Monocytes (%) (Auto) 6% (0-9) Eosinophils (%) (Auto) 2% (0-3) Basophils (%) (Auto) 1% (0-3) Neutrophils # (Auto) 6.4x10^3uL (1.8-7.7) Lymphocytes # (Auto) 1.2x10^3/uL (1.0-4.8) Monocytes # (Auto) 0.5x10^3/uL (0.0-1.1) Eosinophils # (Auto) 0.2x10^3/uL (0.0-0.7) Basophils # (Auto) 0.1x10^3/uL (0.0-0.2) Sodium Level 137mmol/L (136-145) Potassium Level 3.7mmol/L (3.5-5.1) Chloride Level 99mmol/L (98-107) Carbon Dioxide Level 27mmol/L (21-32) Anion Gap 11 (6-14) Blood Urea Nitrogen 13mg/dL (7-20) Creatinine 1.0mg/dL (0.6-1.0) Estimated GFR (Cockcroft-Gault) 61.1 Glucose Level 222mg/dL (70-99) Calcium Level 9.4mg/dL (8.5-10.1) Magnesium Level 1.9mg/dL (1.8-2.4) Total Bilirubin 0.2mg/dL (0.2-1.0) Direct Bilirubin < 0.1mg/dL (0.0-0.2) Aspartate Amino Transf (AST/SGOT) 28U/L (15-37) Alanine Aminotransferase (ALT/SGPT) 49U/L (14-59) Alkaline Phosphatase 92U/L (46-116) Creatine Kinase 76U/L (26-192) Creatine Kinase MB (Mass) < 0.5ng/mL (0.0-3.6) Creatine Kinase MB Relative Index % (0-4) Troponin I Quantitative < 0.017ng/mL (0.000-0.055) HR-Jmb-A-Type Natriuretic Peptide 40pg/mL (0-124) Total Protein 7.5g/dL (6.4-8.2) Albumin 3.6g/dL (3.4-5.0) Glucose (Fingerstick) 190mg/dL (70-99) Urine Collection Type Unknown Urine Color Yellow Urine Clarity Clear Urine pH 5.5 Urine Specific [place] 1.010 Urine Protein Negativemg/dL (NEG-TRACE) Urine Glucose (UA) 100mg/dL (NEG) Urine Ketones (Stick) Negativemg/dL (NEG) Urine Blood Negative (NEG) Urine Nitrite Negative (NEG) Urine Bilirubin Negative (NEG) Urine Urobilinogen Dipstick 0.2mg/dL (0.2 mg/dL) Urine Leukocyte Esterase Negative (NEG) Urine RBC 0/HPF (0-2) Urine WBC Occ/HPF (0-4) Urine Squamous Epithelial Cells Few/LPF Urine Bacteria Moderate/HPF (0-FEW) Bedside Urine HCG, Qualitative hcg negative (Negative) Test 04/25/16 16:25 04/25/16 21:24 04/26/16 04:30 04/26/16 07:45 O2 Saturation 95% (92-99) Arterial Blood pH 7.41 (7.35-7.45) Arterial Blood pCO2 at Patient Temp 36mmHg (35-46) Arterial Blood pO2 at Patient Temp 77mmHg (75-108) Arterial Blood HCO3 23mmol/L (21-28) Arterial Blood Base Excess -2mmol/L (-3-3) FiO2 28.0 Glucose (Fingerstick) 163mg/dL (70-99) 150mg/dL (70-99) White Blood Count 5.9x10^3/uL (4.0-11.0) Red Blood Count 4.75x10^6/uL (3.50-5.40) Hemoglobin 13.0g/dL (12.0-15.5) Hematocrit 39.2% (36.0-47.0) Mean Corpuscular Volume 83fL (79-100) Mean Corpuscular Hemoglobin 27pg (25-35) Mean Corpuscular Hemoglobin Concent 33g/dL (31-37) Red Cell Distribution Width 14.6% (11.5-14.5) Platelet Count 186x10^3/uL (140-400) Neutrophils (%) (Auto) 61% (31-73) Lymphocytes (%) (Auto) 25% (24-48) Monocytes (%) (Auto) 9% (0-9) Eosinophils (%) (Auto) 4% (0-3) Basophils (%) (Auto) 1% (0-3) Neutrophils # (Auto) 3.6x10^3uL (1.8-7.7) Lymphocytes # (Auto) 1.5x10^3/uL (1.0-4.8) Monocytes # (Auto) 0.5x10^3/uL (0.0-1.1) Eosinophils # (Auto) 0.2x10^3/uL (0.0-0.7) Basophils # (Auto) 0.0x10^3/uL (0.0-0.2) Sodium Level 140mmol/L (136-145) Potassium Level 4.0mmol/L (3.5-5.1) Chloride Level 102mmol/L (98-107) Carbon Dioxide Level 29mmol/L (21-32) Anion Gap 9 (6-14) Blood Urea Nitrogen 11mg/dL (7-20) Creatinine 0.7mg/dL (0.6-1.0) Estimated GFR (Cockcroft-Gault) 92.2 Glucose Level 166mg/dL (70-99) Calcium Level 8.7mg/dL (8.5-10.1) Troponin I Quantitative < 0.017ng/mL (0.000-0.055) Triglycerides Level 418mg/dL (0-150) Cholesterol Level 207mg/dL (0-200) LDL Cholesterol, Calculated 93mg/dL (0-100) VLDL Cholesterol, Calculated 84mg/dL (0-40) HDL Cholesterol 30mg/dL (40-60) Cholesterol/HDL Ratio 6.9 Thyroid Stimulating Hormone (TSH) 2.930uIU/mL (0.358-3.74) Free Thyroxine 1.00ng/dL (0.76-1.46) Free Triiodothyronine (T3) pg/mL 3.32pg/mL (2.18-3.98) Test 04/26/16 08:50 04/26/16 11:26 Troponin I Quantitative < 0.017ng/mL (0.000-0.055) Glucose (Fingerstick) 165mg/dL (70-99) Laboratory Tests Test 04/25/16 14:30 04/25/16 14:41 04/25/16 15:50 04/25/16 16:07 White Blood Count 8.5x10^3/uL (4.0-11.0) Red Blood Count 5.01x10^6/uL (3.50-5.40) Hemoglobin 13.8g/dL (12.0-15.5) Hematocrit 41.7% (36.0-47.0) Mean Corpuscular Volume 83fL (79-100) Mean Corpuscular Hemoglobin 28pg (25-35) Mean Corpuscular Hemoglobin Concent 33g/dL (31-37) Red Cell Distribution Width 14.7% (11.5-14.5) Platelet Count 209x10^3/uL (140-400) Neutrophils (%) (Auto) 76% (31-73) Lymphocytes (%) (Auto) 15% (24-48) Monocytes (%) (Auto) 6% (0-9) Eosinophils (%) (Auto) 2% (0-3) Basophils (%) (Auto) 1% (0-3) Neutrophils # (Auto) 6.4x10^3uL (1.8-7.7) Lymphocytes # (Auto) 1.2x10^3/uL (1.0-4.8) Monocytes # (Auto) 0.5x10^3/uL (0.0-1.1) Eosinophils # (Auto) 0.2x10^3/uL (0.0-0.7) Basophils # (Auto) 0.1x10^3/uL (0.0-0.2) Sodium Level 137mmol/L (136-145) Potassium Level 3.7mmol/L (3.5-5.1) Chloride Level 99mmol/L (98-107) Carbon Dioxide Level 27mmol/L (21-32) Anion Gap 11 (6-14) Blood Urea Nitrogen 13mg/dL (7-20) Creatinine 1.0mg/dL (0.6-1.0) Estimated GFR (Cockcroft-Gault) 61.1 Glucose Level 222mg/dL (70-99) Calcium Level 9.4mg/dL (8.5-10.1) Magnesium Level 1.9mg/dL (1.8-2.4) Total Bilirubin 0.2mg/dL (0.2-1.0) Direct Bilirubin < 0.1mg/dL (0.0-0.2) Aspartate Amino Transf (AST/SGOT) 28U/L (15-37) Alanine Aminotransferase (ALT/SGPT) 49U/L (14-59) Alkaline Phosphatase 92U/L (46-116) Creatine Kinase 76U/L (26-192) Creatine Kinase MB (Mass) < 0.5ng/mL (0.0-3.6) Creatine Kinase MB Relative Index % (0-4) Troponin I Quantitative < 0.017ng/mL (0.000-0.055) KP-Red-Z-Type Natriuretic Peptide 40pg/mL (0-124) Total Protein 7.5g/dL (6.4-8.2) Albumin 3.6g/dL (3.4-5.0) Glucose (Fingerstick) 190mg/dL (70-99) Urine Collection Type Unknown Urine Color Yellow Urine Clarity Clear Urine pH 5.5 Urine Specific [place] 1.010 Urine Protein Negativemg/dL (NEG-TRACE) Urine Glucose (UA) 100mg/dL (NEG) Urine Ketones (Stick) Negativemg/dL (NEG) Urine Blood Negative (NEG) Urine Nitrite Negative (NEG) Urine Bilirubin Negative (NEG) Urine Urobilinogen Dipstick 0.2mg/dL (0.2 mg/dL) Urine Leukocyte Esterase Negative (NEG) Urine RBC 0/HPF (0-2) Urine WBC Occ/HPF (0-4) Urine Squamous Epithelial Cells Few/LPF Urine Bacteria Moderate/HPF (0-FEW) Bedside Urine HCG, Qualitative hcg negative (Negative) Test 04/25/16 16:25 04/25/16 21:24 04/26/16 04:30 04/26/16 07:45 O2 Saturation 95% (92-99) Arterial Blood pH 7.41 (7.35-7.45) Arterial Blood pCO2 at Patient Temp 36mmHg (35-46) Arterial Blood pO2 at Patient Temp 77mmHg (75-108) Arterial Blood HCO3 23mmol/L (21-28) Arterial Blood Base Excess -2mmol/L (-3-3) FiO2 28.0 Glucose (Fingerstick) 163mg/dL (70-99) 150mg/dL (70-99) White Blood Count 5.9x10^3/uL (4.0-11.0) Red Blood Count 4.75x10^6/uL (3.50-5.40) Hemoglobin 13.0g/dL (12.0-15.5) Hematocrit 39.2% (36.0-47.0) Mean Corpuscular Volume 83fL (79-100) Mean Corpuscular Hemoglobin 27pg (25-35) Mean Corpuscular Hemoglobin Concent 33g/dL (31-37) Red Cell Distribution Width 14.6% (11.5-14.5) Platelet Count 186x10^3/uL (140-400) Neutrophils (%) (Auto) 61% (31-73) Lymphocytes (%) (Auto) 25% (24-48) Monocytes (%) (Auto) 9% (0-9) Eosinophils (%) (Auto) 4% (0-3) Basophils (%) (Auto) 1% (0-3) Neutrophils # (Auto) 3.6x10^3uL (1.8-7.7) Lymphocytes # (Auto) 1.5x10^3/uL (1.0-4.8) Monocytes # (Auto) 0.5x10^3/uL (0.0-1.1) Eosinophils # (Auto) 0.2x10^3/uL (0.0-0.7) Basophils # (Auto) 0.0x10^3/uL (0.0-0.2) Sodium Level 140mmol/L (136-145) Potassium Level 4.0mmol/L (3.5-5.1) Chloride Level 102mmol/L (98-107) Carbon Dioxide Level 29mmol/L (21-32) Anion Gap 9 (6-14) Blood Urea Nitrogen 11mg/dL (7-20) Creatinine 0.7mg/dL (0.6-1.0) Estimated GFR (Cockcroft-Gault) 92.2 Glucose Level 166mg/dL (70-99) Calcium Level 8.7mg/dL (8.5-10.1) Troponin I Quantitative < 0.017ng/mL (0.000-0.055) Triglycerides Level 418mg/dL (0-150) Cholesterol Level 207mg/dL (0-200) LDL Cholesterol, Calculated 93mg/dL (0-100) VLDL Cholesterol, Calculated 84mg/dL (0-40) HDL Cholesterol 30mg/dL (40-60) Cholesterol/HDL Ratio 6.9 Thyroid Stimulating Hormone (TSH) 2.930uIU/mL (0.358-3.74) Free Thyroxine 1.00ng/dL (0.76-1.46) Free Triiodothyronine (T3) pg/mL 3.32pg/mL (2.18-3.98) Test 04/26/16 08:50 04/26/16 11:26 Troponin I Quantitative < 0.017ng/mL (0.000-0.055) Glucose (Fingerstick) 165mg/dL (70-99) Brief Hospital Course Ms. Stoner is a 41 old admitted myalgia and chest pain, noted anxiety TTE. no significant changes . GERD she felt much improved with anxiety meds, Lifestyle modifications discussed . Daily ASA 81 mg, lisinopril 5 - metformin est. primary care to f/u Discharge Information Condition at Discharge: Improved Follow Up: Weeks Disposition/Orders: D/C to Home Scheduled Aspirin (Aspirin Ec) 81 MG PO DAILYWBKFT Lisinopril (Lisinopril) 5 MG PO DAILY Metformin Hcl (Metformin Hcl) 1 TAB PO DAILY Scheduled PRN Lorazepam (Ativan) 0.5 MG PO BID PRN PRN ANXIETY Patient Instructions Patient Instructions time > 30 min MERCEDES SOLOMON MD Apr 26, 2016 14:15
[2016-04-26] MEDS ORDERED: ENOXAPARIN 40 MG/0.4 ML DISP.SYRIN. SQ SCH (14:30)
--- NOTE | 2016-04-26 14:44 | CARD ---
APPROVED REPORT EXAM: Two-dimensional and M-mode echocardiogram with Doppler and color Doppler. Other Information Quality : LimitedHR: 100bpm Rhythm : TachycardiaTechnically limited study due to body habitus. INDICATION Chest Pain SHORT OF AIR RISK FACTORS Obesity 2D DIMENSIONS Left Atrium(2D)3.2 (1.6-4.0cm)Aortic Root(2D)3.1 (2.0-3.7cm) LVOT Diameter2.3 (1.8-2.4cm)LVDs2.9 (2.5-4.0cm) Aortic Valve AoV Peak Juwan.152.5cm/sAoV VTI23.0cm AO Peak GR.9.3mmHgLVOT Peak Juwan.92.6cm/s AO Mean GR.5mmHgAVA (VMAX)2.43cm2 Mitral Valve MV E Peak Gr.6mmHgMV E Mean Gr.3mmHg Pulmonary Valve PV Peak Zqjevmbd673.1cm/s Pulmonary Vein S1 Rpwosfon05.3cm/sD2 Jxitqako23.2cm/s PVa [id number] LEFT VENTRICLE The left ventricle is normal size. There is mild concentric left ventricular hypertrophy. The left ve ntricular systolic function is normal. The Ejection Fraction is 60-65%. There is normal LV segmental wall motion. Uunable to assess left ventricular compliance due to E/a waveform fusion. RIGHT VENTRICLE The right ventricle is normal size. There is normal right ventricular wall thickness. The right ventr icular systolic function is normal. ATRIA The left atrium size is normal. The right atrium size is normal. The interatrial septum is intact wit h no evidence for an atrial septal defect or patent foramen ovale as noted on 2-D or Doppler imaging. AORTIC VALVE The aortic valve is mildly thickened. Doppler and Color Flow revealed no significant aortic regurgita tion. There is no significant aortic valvular stenosis. MITRAL VALVE The mitral valve leaflets are thickened. There is no evidence of mitral valve prolapse. There is no m itral valve stenosis. Doppler and Color Flow revealed no mitral valve regurgitation noted. TRICUSPID VALVE The tricuspid valve is normal in structure and function. Doppler and Color Flow revealed no tricuspid valve regurgitation noted. There is no pulmonary hypertension. PULMONIC VALVE The pulmonary valve is normal in structure and function. Doppler and Color Flow revealed no pulmonic valvular regurgitation. There is no pulmonic valvular stenosis. GREAT VESSELS The aortic root is normal in size. The ascending aorta is normal in size. The pulmonary artery is nor mal. The IVC is normal in size and collapses >50% with inspiration. PERICARDIAL EFFUSION There is no evidence of significant pericardial effusion. Critical Notification Critical Value: No <Conclusion> The left ventricular systolic function is normal. The Ejection Fraction is 60-65%. There is normal LV segmental wall motion. No significant valvular stenosis or regurgitation. There is no evidence of significant pericardial effusion.
[2016-04-26] MEDS ORDERED: GEMFIBROZIL 600 MG TABLET. PO SCH (16:30)
[2016-04-26] MEDS ORDERED: OMEGA-3 FATTY ACIDS/FISH OIL 1,000 MG CAPSULE. PO SCH (21:00)
== END 2016-04-26 15:38 | disposition home or self-care (01) ==
LOC: ER 14:03 → 5 SOUTH 17:55
PROVIDERS: ADMIT Internal Medicine; ATTEND Internal Medicine
DX: R07.89 Other chest pain (principal); I10 Essential (primary) hypertension; E11.65 Type 2 diabetes mellitus with hyperglycemia; Z79.4 Long term (current) use of insulin; K21.9 Gastro-esophageal reflux disease without esophagitis; E66.01 Morbid (severe) obesity due to excess calories; R20.0 Anesthesia of skin; R53.1 Weakness; Z82.49 Family history of ischemic heart disease and other diseases of the circulatory system; Z68.42 Body mass index [BMI] 45.0-49.9, adult; Z91.19 Patient's noncompliance with other medical treatment and regimen; E78.5 Hyperlipidemia, unspecified; F41.9 Anxiety disorder, unspecified
CPT/HCPCS: 36415; 36600; 71010; 80048; 80061; 80076; 81001; 81025; 82533; 82553; 82805; 82947; 83036; 83735; 83880; 84439; 84443; 84481; 84484; 85027; 87086; 93005; 93306; 96361; 96372; 96374; 96376; 99285; G0378; J1650; J1815; J3010; J7030; Q0163; G0379

== ENCOUNTER 2016-06-24 18:25 | Emergency (ER) | payer SELFPAY ==
[~2016-06-24] VITALS: Ht 170.2 cm; Wt 138.3 kg
[~2016-06-24 18:25] MED LIST: ASPI81TA9 PO; LISI-338 PO; LORA0.5T96 PO; METF500T4 PO
--- NOTE | 2016-06-24 18:53 | PHYS DOC ---
Past Medical History Past Medical History: Anxiety, Arthritis, Diabetes-Type II, Fibromyalgia, GERD , Hypertension Additional Past Medical Histor: HERNIA, DDD Past Surgical History: Other Additional Past Surgical Histo: HERNIA Alcohol Use: None Drug Use: None Adult General Chief Complaint Chief Complaint: ABDOMINAL PAIN HPI HPI 41-year-old female presenting to the emergency department today with epigastric abdominal pain from a hernia. She describes the pain as moderate and nonradiating in the epigastrium and without alleviating factors. Review of systems is negative for shortness of breath fevers chills cough. She does have mild nausea without vomiting. All other review of systems is negative unless otherwise noted in history of present illness. Review of Systems Review of Systems SEE ABOVE Current Medications Current Medications Current Medications Medications (Trade) Dose Ordered Sig/Caitlyn Start Time Stop Time Status Last Admin Dose Admin Fentanyl Citrate (Fentanyl 2ml Vial) 25 mcg 1X ONCE 06/24/16 19:00 06/24/16 19:01 DC 06/24/16 19:15 25 MCG Ondansetron HCl (Zofran) 4 mg 1X ONCE 06/24/16 19:00 06/24/16 19:01 DC 06/24/16 19:15 4 MG Allergies Allergies Allergies Coded Allergies Type Severity Reaction Last Updated Verified morphine Allergy Intermediate 03/13/15 Yes oxycodone Allergy Intermediate 11/01/15 Yes shellfish derived Allergy Intermediate Rash 07/13/13 Yes sulfamethoxazole Allergy Intermediate rash 05/16/13 Yes trimethoprim Allergy Intermediate rash 05/16/13 Yes Physical Exam Physical Exam Constitutional: Well developed, well nourished, no acute distress, non-toxic appearance. HENT: Normocephalic, atraumatic, bilateral external ears normal, oropharynx moist, no oral exudates, nose normal. [] Eyes: PERRLA, EOMI, conjunctiva normal, no discharge. [] Neck: Normal range of motion, no tenderness, supple, no stridor. Cardiovascular:Heart rate regular rhythm, no murmur [] Lungs & Thorax: Bilateral breath sounds clear to auscultation Abdomen: Patient's abdomen is soft and nontender. She does have a palpable hernia that is easily reducible and without any evidence of overlying cellulitis. Not incarcerated, not strangulated. Otherwise negative McBurney's point. No rebound tenderness or guarding is present. Skin: Warm, dry, no erythema, no rash. [] Back: No tenderness, no CVA tenderness. [] Extremities: No tenderness, no cyanosis, no clubbing, ROM intact, no edema. Neurologic: Alert and oriented X 3, normal motor function, normal sensory function, no focal deficits noted. Psychologic: Affect normal, judgement normal, mood normal. [] Current Patient Data Vital Signs Vital Signs Date Time Temp Pulse Resp B/P Pulse Ox O2 Delivery O2 Flow Rate FiO2 06/24/16 20:16 78 147/80 96 Room Air 06/24/16 18:29 97.5 22 97.5 Lab Values Laboratory Tests Test 06/24/16 18:12 06/24/16 19:05 POC Urine HCG, Qualitative Hcg negative (Negative) White Blood Count 8.3x10^3/uL (4.0-11.0) Red Blood Count 4.92x10^6/uL (3.50-5.40) Hemoglobin 13.5g/dL (12.0-15.5) Hematocrit 40.7% (36.0-47.0) Mean Corpuscular Volume 83fL (79-100) Mean Corpuscular Hemoglobin 27pg (25-35) Mean Corpuscular Hemoglobin Concent 33g/dL (31-37) Red Cell Distribution Width 14.8% (11.5-14.5) H Platelet Count 206x10^3/uL (140-400) Neutrophils (%) (Auto) 70% (31-73) Lymphocytes (%) (Auto) 19% (24-48) L Monocytes (%) (Auto) 7% (0-9) Eosinophils (%) (Auto) 4% (0-3) H Basophils (%) (Auto) 0% (0-3) Neutrophils # (Auto) 5.8x10^3uL (1.8-7.7) Lymphocytes # (Auto) 1.5x10^3/uL (1.0-4.8) Monocytes # (Auto) 0.6x10^3/uL (0.0-1.1) Eosinophils # (Auto) 0.3x10^3/uL (0.0-0.7) Basophils # (Auto) 0.0x10^3/uL (0.0-0.2) Sodium Level 138mmol/L (136-145) Potassium Level 4.0mmol/L (3.5-5.1) Chloride Level 99mmol/L (98-107) Carbon Dioxide Level 27mmol/L (21-32) Anion Gap 12 (6-14) Blood Urea Nitrogen 13mg/dL (7-20) Creatinine 0.9mg/dL (0.6-1.0) Estimated GFR (Cockcroft-Gault) 69.0 BUN/Creatinine Ratio 14 (6-20) Glucose Level 328mg/dL (70-99) H Calcium Level 9.8mg/dL (8.5-10.1) Total Bilirubin 0.2mg/dL (0.2-1.0) Aspartate Amino Transferase (AST) 18U/L (15-37) Alanine Aminotransferase (ALT) 37U/L (14-59) Alkaline Phosphatase 95U/L (46-116) Total Protein 7.4g/dL (6.4-8.2) Albumin 3.4g/dL (3.4-5.0) Albumin/Globulin Ratio 0.9 (1.0-1.7) L Lipase 157U/L (73-393) Laboratory Tests 06/24/16 19:05 Laboratory Tests 06/24/16 19:05 EKG EKG [] Radiology/Procedures Radiology/Procedures [] Course & Med Decision Making Course & Med Decision Making Pertinent Labs and Imaging studies reviewed. (See chart for details) [] 41-year-old female presenting to the emergency department with pain from her hernia. Vital signs showed that she is afebrile. Tachycardic likely secondary to pain. Otherwise hypertensive which is chronic. Pertinent physical exam findings show the patients hernia was not incarcerated or strangulated. She was given IV fluids and nausea and pain medication in the emergency department which improved the patient's symptoms. Reexamination of the patient's abdomen continued to show a nonincarcerated non-strangulated hernia. She was subsequently discharged home to follow-up with her PCP over the next 2-3 days. [id number] discharge instructions were given along with return precautions. Dragon Disclaimer Dragon Disclaimer This electronic medical record was generated, in whole or in part, using a voice recognition dictation system. Departure Departure Impression: Primary Impression: Abdominal pain Disposition: 01 HOME, SELF-CARE Condition: STABLE Referrals: NO PCP (PCP) SUJEY TURCIOS MD Patient Instructions: Abdominal Pain (Nonspecific), Hernia Additional Instructions: Thank you for allowing us to participate in your care today. Followup with your primary care physician in 3 days if your symptoms do not improve. If you do not have a primary care provider you can ask for a list of our primary care providers. Return to the emergency department you have any new or concerning findings. This should be evaluated by the primary care physician and any necessary consulting services for continued management within a few days after discharge. Return to emergency room if you have any new or concerning symptoms including but not limited to fever, chills, nausea, vomiting, intractable pain, any new rashes, chest pain, shortness of air, uncontrolled bleeding, difficulty breathing, and/or vision loss. You may have been prescribed medication that can change in your level of thinking and ability to operate machinery. These medications include hydrocodone and Ativan. Also, Benadryl has been known to do this as well. Be sure to check with your pharmacist and ask if the medications you've prescribed can affect your level of consciousness. I recommend not operating heavy machinery or driving while on medication such as these. Scripts Hydrocodone Bit/Acetaminophen (Hydrocodone-Apap 5-325 )1 Each Tablet1 Tab PO PRN Q6HRS PRN PAIN #15 TAB Be careful as this medication may cause you to be drowsy or tired. Do not drive on this medication. Prov:GEORGES SOUTH MD 06/24/16 Problem Qualifiers Primary Impression: Abdominal pain Abdominal location: epigastric Qualified Code: R10.13 - Epigastric pain GEORGES SOUTH MD Jun 24, 2016 18:53
[2016-06-24] MEDS ORDERED: FENTANYL PF 100 MCG/2 ML VIAL. IV ONE (19:00)
[2016-06-24] MEDS ORDERED: ONDANSETRON PF 4 MG/2 ML VIAL. IV ONE (19:00)
[2016-06-24 19:13] LABS: BASO % 0 % (0-3); EOS % 4 % (0-3); HEMATOCRIT 40.7 % (36.0-47.0); HEMOGLOBIN 13.5 g/dL (12.0-15.5); LYMPH # 1.5 x10^3/uL (1.0-4.8); LYMPH % 19 % (24-48); MEAN CORPUSCULAR HEMOGLOBIN 27 pg (25-35); MEAN CORPUSCULAR HGB CONC 33 g/dL (31-37); MEAN CORPUSCULAR VOLUME 83 fL (79-100); MONO % 7 % (0-9); NEUT % 70 % (31-73); PLATELET COUNT 206 x10^3/uL (140-400); RED BLOOD COUNT 4.92 x10^6/uL (3.50-5.40); RED CELL DISTRIBUTION WIDTH 14.8 % (11.5-14.5); WHITE BLOOD COUNT 8.3 x10^3/uL (4.0-11.0)
[2016-06-24 19:33] LABS: CALCIUM 9.8 mg/dL (8.5-10.1); CREATININE 0.9 mg/dL (0.6-1.0)
[2016-06-24 19:45] LABS: ALBUMIN 3.4 g/dL (3.4-5.0); ALBUMIN/GLOBULIN RATIO 0.9 (1.0-1.7); TOTAL BILIRUBIN 0.2 mg/dL (0.2-1.0); TOTAL PROTEIN 7.4 g/dL (6.4-8.2)
[2016-06-24 20:16] VITALS: BP 147/80
--- NOTE | 2016-06-24 20:21 | RAD ---
PROCEDURE Limited abdomen ultrasound study of the right upper quadrant. HISTORY Left upper quadrant abdominal pain and periumbilical pain. History of hernias. COMPARISON None available. FINDINGS This study is technically difficult due to patient's large body habitus and overlying bowel gas. The midline structures including the pancreas and abdominal aorta and IVC are completely obscured. There is diffuse attenuation of sound throughout the liver which may decrease the sensitivity of sonography to detect focal hepatic lesions. Therefore, the liver parenchyma is poorly visualized. This may be seen with fatty infiltration of the liver. The liver measures 18.3 centimeters in length which is mildly enlarged. Gallbladder is partially visible and no obvious gallstones are seen. The extrahepatic bile duct is partially visible an measures 4.1 millimeters in caliber. The length of the right kidney is 10.6 centimeters. No hydronephrosis or renal mass or perinephric fluid collection is seen on this side. Sonography of the left upper quadrant was performed in the area of pain as indicated by the patient. No obvious hernia is seen sonographically. Sonography of the periumbilical area was performed in the area of pain as indicated by the patient. No obvious focal hernia is seen. However, this sonogram is not optimal due to the patient's body habitus and the bowel gas. Therefore, if pain persists, CT study of the abdomen and pelvis with IV contrast may be helpful to evaluate for hernias. IMPRESSION The study is not optimal and technically difficult due to the patient's body habitus and bowel gas and fatty infiltration of the liver. No definite hernia is seen on this study but may be difficult to visualize given the limitations of sonography. See discussion above. Electronically signed by: Lukas Ellison MD (Jun 24, 2016 20:19:56)
[2016-06-24] MEDS ORDERED: HYDR-2666 PO (20:33)
== END 2016-06-24 21:00 | disposition home or self-care (01) ==
LOC: ER 18:25
DX: R10.13 Epigastric pain (principal); R11.0 Nausea; R00.0 Tachycardia, unspecified; F41.9 Anxiety disorder, unspecified; M19.90 Unspecified osteoarthritis, unspecified site; E11.9 Type 2 diabetes mellitus without complications; M79.7 Fibromyalgia; K21.9 Gastro-esophageal reflux disease without esophagitis; I10 Essential (primary) hypertension; Z91.013 Allergy to seafood; Z88.1 Allergy status to other antibiotic agents; Z88.5 Allergy status to narcotic agent; Z88.2 Allergy status to sulfonamides
CPT/HCPCS: 36415; 76705; 80053; 81025; 83690; 85027; 96374; 96375; 99285; J2405; J3010

== ENCOUNTER 2017-02-08 16:04 | Emergency (ER) | payer SELFPAY ==
[~2017-02-08] VITALS: Ht 170.2 cm; Wt 131.5 kg
[~2017-02-08 16:04] MED LIST changes: +ASPI-612 PO; -ASPI81TA9 PO; +HYDR-2758 PO
[2017-02-08] MEDS ORDERED: NITROGLYCERIN SUBLINGUAL 0.4 MG BOTTLE OF 25. SL PRN (16:30)
[2017-02-08 16:45] LABS: BASO % 0 % (0-3); EOS % 4 % (0-3); HEMOGLOBIN 13.7 g/dL (12.0-15.5); LYMPH # 1.3 x10^3/uL (1.0-4.8); LYMPH % 18 % (24-48); MEAN CORPUSCULAR HEMOGLOBIN 28 pg (25-35); MEAN CORPUSCULAR HGB CONC 34 g/dL (31-37); MEAN CORPUSCULAR VOLUME 84 fL (79-100); MONO % 7 % (0-9); NEUT % 72 % (31-73); PLATELET COUNT 213 x10^3/uL (140-400); RED CELL DISTRIBUTION WIDTH 14.4 % (11.5-14.5); WHITE BLOOD COUNT 7.3 x10^3/uL (4.0-11.0)
[2017-02-08] MEDS ORDERED: ASPIRIN CHEWABLE 81 MG TABLET. PO ONE (16:45)
[2017-02-08 16:54] LABS: BILIRUBIN,URINE NEGATIVE (NEG); GLUCOSE,URINE NEGATIVE (NEG); NITRITE,URINE NEGATIVE (NEG); PH,URINE 5.5; PROTEIN,URINE NEGATIVE (NEG-TRACE); UROBILINOGEN,URINE 0.2 mg/dL (0.2 mg/dL)
[2017-02-08 17:04] LABS: BACTERIA,URINE MANY /HPF (0-FEW); RBC,URINE RARE /HPF (0-2); SQUAMOUS EPITHELIAL CELL,UR OCC /LPF
[2017-02-08 17:08] LABS: BARBITURATES NEG (NEG); BENZODIAZEPINES NEG (NEG); CANNABINOIDS NEG (NEG); COCAINE NEG (NEG); METHADONE NEG (NEG); OPIATES NEG (NEG); PHENCYCLIDINE NEG (NEG)
[2017-02-08 17:08] LABS: CALCIUM 9.1 mg/dL (8.5-10.1); CREATININE 0.8 mg/dL (0.6-1.0); GFR 78.7; POTASSIUM 3.9 mmol/L (3.5-5.1)
[2017-02-08 17:12] LABS: ALBUMIN 3.6 g/dL (3.4-5.0); TOTAL BILIRUBIN 0.2 mg/dL (0.2-1.0); TOTAL PROTEIN 7.3 g/dL (6.4-8.2)
--- NOTE | 2017-02-08 17:17 | EKG ---
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
[2017-02-08 18:19] VITALS: BP 147/95
[2017-02-08] MEDS ORDERED: ACETAMINOPHEN 500 MG TABLET PO ONE (19:00)
--- NOTE | 2017-02-08 19:02 | ED.ADGEN ---
Past Medical History Past Medical History: Anxiety, Arthritis, Diabetes-Type II, Fibromyalgia, GERD , High Cholesterol, Hypertension Additional Past Medical Histor: HERNIA, DDD, chronic hip, knee, spine back Past Surgical History: Other Additional Past Surgical Histo: HERNIA Alcohol Use: None Drug Use: None Adult General Chief Complaint Chief Complaint: ANXIETY/PANIC ATTACK HPI HPI Patient is a 42 year old [woman, history of type 2 diabetes mellitus, hypertension, morbid obesity, hyperlipidemia, anxiety, fibromyalgia, who presents to the emergency department with a complaint of anterior chest pain, which she states has been intermittent today. Patient denies any shortness of breath, any nausea or vomiting, any belching, any lightheadedness or dizziness. She states that she thinks this may be due to anxiety, but denies any specific triggers. Patient denies any weakness, numbness or tingling, states she's been compliant with her medications. States currently her pain is a 7 out of 10, she is not taking any medication for pain at home. No swelling of the extremities, recent travel or surgery, history of DVT or PE. Review of Systems Review of Systems Constitutional: Denies fever or chills. [] Eyes: Denies change in visual acuity. [] HENT: Denies nasal congestion or sore throat. [] Respiratory: Denies cough, mild shortness of breath. Cardiovascular: Anterior chest pain, no radiation edema. [] GI: Denies abdominal pain, nausea, vomiting, bloody stools or diarrhea. [] : Denies dysuria. [] Musculoskeletal: Denies back pain or joint pain. [] Integument: Denies rash. [] Neurologic: Denies headache, focal weakness or sensory changes. [] Endocrine: Denies polyuria or polydipsia. [] Lymphatic: Denies swollen glands. [] Psychiatric: Denies depression or anxiety. [] Current Medications Current Medications Current Medications Medications (Trade) Dose Ordered Sig/Caitlyn Start Time Stop Time Status Last Admin Dose Admin Acetaminophen (Tylenol) 1,000 mg 1X ONCE 02/08/17 19:00 02/08/17 19:01 02/08/17 18:46 1,000 MG Aspirin (Children'S Aspirin) 324 mg 1X ONCE 02/08/17 16:45 02/08/17 16:46 DC 02/08/17 16:45 324 MG Nitroglycerin (Nitrostat) 0.4 mg PRN Q5MIN PRN 02/08/17 16:30 02/09/17 16:29 Allergies Allergies Allergies Coded Allergies Type Severity Reaction Last Updated Verified morphine Allergy Intermediate 03/13/15 Yes oxycodone Allergy Intermediate 11/01/15 Yes shellfish derived Allergy Intermediate Rash 07/13/13 Yes sulfamethoxazole Allergy Intermediate rash 05/16/13 Yes trimethoprim Allergy Intermediate rash 05/16/13 Yes Physical Exam Physical Exam Constitutional: Well developed, obese, no acute distress, non-toxic appearance. [] HENT: Normocephalic, atraumatic, bilateral external ears normal, oropharynx moist, no oral exudates, nose normal. [] Eyes: PERRLA, EOMI, conjunctiva normal, no discharge. [] Neck: Normal range of motion, no tenderness, supple, no stridor. [] Cardiovascular:Heart rate regular rhythm, no murmur, S1, S2, no rubs or gallops. No chest wall tenderness or crepitus. [] Lungs & Thorax: Bilateral breath sounds clear to auscultation no wheezing, rhonchi, rales. [] Abdomen: Bowel sounds normal, obese, soft, no tenderness, no masses, no pulsatile masses. [] Skin: Warm, dry, no erythema, no rash. [] Back: No tenderness, no CVA tenderness. [] Extremities: No tenderness, no cyanosis, no clubbing, ROM intact, no edema. Negative Homans sign.[] Neurologic: Alert and oriented X 3, normal motor function, normal sensory function, no focal deficits noted. [] Psychologic: Patient tearful, complaining of feeling anxious, normal judgment. Current Patient Data Vital Signs Vital Signs Date Time Temp Pulse Resp B/P (MAP) Pulse Ox O2 Delivery O2 Flow Rate FiO2 02/08/17 18:05 76 138/67 (90) 92 Room Air 02/08/17 17:19 18 02/08/17 16:17 98.3 98.3 Lab Values Laboratory Tests Test 02/08/17 16:15 02/08/17 16:34 02/08/17 16:46 02/08/17 17:30 Urine Color Yellow Urine Clarity Clear Urine pH 5.5 Urine Specific [place] 1.010 Urine Protein Negative mg/dL (NEG-TRACE) Urine Glucose (UA) Negative mg/dL (NEG) Urine Ketones (Stick) Negative mg/dL (NEG) Urine Blood Small (NEG) Urine Nitrite Negative (NEG) Urine Bilirubin Negative (NEG) Urine Urobilinogen Dipstick 0.2 mg/dL (0.2 mg/dL) Urine Leukocyte Esterase Moderate (NEG) Urine RBC Rare /HPF (0-2) Urine WBC 1-4 /HPF (0-4) Urine Squamous Epithelial Cells Occ /LPF Urine Bacteria Many /HPF (0-FEW) Urine Mucus Slight /LPF Urine Opiates Screen Neg (NEG) Urine Methadone Screen Neg (NEG) Urine Barbiturates Neg (NEG) Urine Phencyclidine Screen Neg (NEG) Urine Amphetamine/Methamphetamine Neg (NEG) Urine Benzodiazepines Screen Neg (NEG) Urine Cocaine Screen Neg (NEG) Urine Cannabinoids Screen Neg (NEG) Urine Ethyl Alcohol Neg (NEG) White Blood Count 7.3 x10^3/uL (4.0-11.0) Red Blood Count 4.90 x10^6/uL (3.50-5.40) Hemoglobin 13.7 g/dL (12.0-15.5) Hematocrit 41.0 % (36.0-47.0) Mean Corpuscular Volume 84 fL (79-100) Mean Corpuscular Hemoglobin 28 pg (25-35) Mean Corpuscular Hemoglobin Concent 34 g/dL (31-37) Red Cell Distribution Width 14.4 % (11.5-14.5) Platelet Count 213 x10^3/uL (140-400) Neutrophils (%) (Auto) 72 % (31-73) Lymphocytes (%) (Auto) 18 % (24-48) L Monocytes (%) (Auto) 7 % (0-9) Eosinophils (%) (Auto) 4 % (0-3) H Basophils (%) (Auto) 0 % (0-3) Neutrophils # (Auto) 5.2 x10^3uL (1.8-7.7) Lymphocytes # (Auto) 1.3 x10^3/uL (1.0-4.8) Monocytes # (Auto) 0.5 x10^3/uL (0.0-1.1) Eosinophils # (Auto) 0.3 x10^3/uL (0.0-0.7) Basophils # (Auto) 0.0 x10^3/uL (0.0-0.2) Sodium Level 140 mmol/L (136-145) Potassium Level 3.9 mmol/L (3.5-5.1) Chloride Level 102 mmol/L (98-107) Carbon Dioxide Level 25 mmol/L (21-32) Anion Gap 13 (6-14) Blood Urea Nitrogen 10 mg/dL (7-20) Creatinine 0.8 mg/dL (0.6-1.0) Estimated GFR (Cockcroft-Gault) 78.7 BUN/Creatinine Ratio 13 (6-20) Glucose Level 204 mg/dL (70-99) H Calcium Level 9.1 mg/dL (8.5-10.1) Total Bilirubin 0.2 mg/dL (0.2-1.0) Aspartate Amino Transferase (AST) 22 U/L (15-37) Alanine Aminotransferase (ALT) 42 U/L (14-59) Alkaline Phosphatase 72 U/L (46-116) Troponin I Quantitative < 0.017 ng/mL (0.000-0.055) KM-Yie-L-Type Natriuretic Peptide 119 pg/mL (0-124) Total Protein 7.3 g/dL (6.4-8.2) Albumin 3.6 g/dL (3.4-5.0) Albumin/Globulin Ratio 1.0 (1.0-1.7) Lipase 136 U/L (73-393) POC Urine HCG, Qualitative Hcg negative (Negative) Glucose (Fingerstick) 150 mg/dL (70-99) H Laboratory Tests 02/08/17 16:34 Laboratory Tests 02/08/17 16:34 EKG EKG EC: Sinus rhythm, heart rate 88 beats/minute, left axis deviation, QTC of 473, SC 184, QR 78, no ST elevations or depressions, abnormal ECG, does not meet STEMI criteria.[] Radiology/Procedures Radiology/Procedures Chest x-ray: One view: Normal cardiopulmonary silhouette, no infiltrates, no effusions, no soft tissue or bony abnormalities. As interpreted by me.[] Course & Med Decision Making Course & Med Decision Making Pertinent Labs and Imaging studies reviewed. (See chart for details) Patient anxious and tearful, initially states that she is having 7-10 pain, states she is having no pain currently. She states that she believes this could be due to her anxiety, but as she does have significant health wrist, is agreeable to evaluation. Initially tearful, because much calmer during her conversation, does have at bedside. She denies any suicidal or homicidal ideation, or any self injures type behaviors. She did decline nitroglycerin in the ED, was offered Tylenol, was agreeable to receiving laboratory studies and chest x-ray, discussed use of HEART score, which will require repeat ECG and 3 hour troponin. Patient initially agreeable with this plan, however on reevaluation she states that she is feeling fine, and wants to leave at this time. She states that her is with her, she'll return to the emergency department if symptoms return or for any new concerning symptoms develop. I did discuss this with patient, as all of her results are not back yet , that I would prefer her to stay. Patient states that she is not willing to stay any longer, and did sign out AGAINST MEDICAL ADVICE, at this point she is calm and cooperative, appropriate in her responses. AMA paperwork was completed with nurse Mack, patient did exit the emergency department with her , ambulating without difficulty. Dragon Disclaimer Dragon Disclaimer This electronic medical record was generated, in whole or in part, using a voice recognition dictation system. Departure Impression: Primary Impression: Chest pain Additional Impressions: Anxiety Left against medical advice Disposition: 07 AGAINST MEDICAL ADVICE Condition: STABLE Problem Qualifiers LORETA SHIELDS DO Feb 08, 2017 19:02
--- NOTE | 2017-02-09 09:01 | RAD ---
Single view chest History:Chest pain today An AP view of the chest is submitted. Comparison: 04/25/2016. Findings: There is no significant infiltrate, pleural effusion, or pneumothorax. The pericardial cardiac silhouette is within normal limits in size. The trachea is in the midline. Impression: There is no evidence of acute cardiopulmonary disease.
== END 2017-02-08 18:48 | disposition left against medical advice (07) ==
LOC: ER 16:04
DX: R07.89 Other chest pain (principal); F41.9 Anxiety disorder, unspecified; I10 Essential (primary) hypertension; E11.9 Type 2 diabetes mellitus without complications; E78.00 Pure hypercholesterolemia, unspecified; K21.9 Gastro-esophageal reflux disease without esophagitis; M79.7 Fibromyalgia; G89.29 Other chronic pain; Z88.2 Allergy status to sulfonamides; Z88.5 Allergy status to narcotic agent; Z88.8 Allergy status to other drugs, medicaments and biological substances; Z91.013 Allergy to seafood
CPT/HCPCS: 36415; 71010; 80053; 80307; 81001; 81025; 82962; 83690; 83880; 84484; 85025; 87086; 93005; 99285-25; G0479

== ENCOUNTER 2017-05-08 15:12 | Emergency (ER) | payer SELFPAY ==
[2017-05-08] MEDS: oxyCODONE/APAP 5/325 1 TAB TABLET PO ×2 (17:05)
[2017-05-08 17:08] LABS: BILIRUBIN,URINE NEGATIVE (NEG); CLARITY,URINE CLEAR; COLOR,URINE YELLOW; GLUCOSE,URINE 100 mg/dL (NEG); NITRITE,URINE NEGATIVE (NEG); PH,URINE 5.5; PROTEIN,URINE NEGATIVE (NEG-TRACE); UROBILINOGEN,URINE 0.2 mg/dL (0.2 mg/dL)
[2017-05-08 17:13] LABS: BACTERIA,URINE FEW /HPF (0-FEW); RBC,URINE 0 /HPF (0-2); WBC,URINE OCC /HPF (0-4)
[2017-05-08 17:14] LABS: SQUAMOUS EPITHELIAL CELL,UR FEW /LPF
[2017-05-09 14:35] LABS: CHLAMYDIA PROBE Negative (Negative); GC PROBE Negative (Negative)
== END 2017-05-08 17:24 | disposition home or self-care (01) ==
LOC: ER 15:12
DX: T19.2XXA Foreign body in vulva and vagina, initial encounter (principal); R30.0 Dysuria; M19.90 Unspecified osteoarthritis, unspecified site; M79.7 Fibromyalgia; K21.9 Gastro-esophageal reflux disease without esophagitis; I10 Essential (primary) hypertension; F41.9 Anxiety disorder, unspecified; E78.00 Pure hypercholesterolemia, unspecified; E11.9 Type 2 diabetes mellitus without complications; M51.35 Other intervertebral disc degeneration, thoracolumbar region; Z88.1 Allergy status to other antibiotic agents; Z88.2 Allergy status to sulfonamides; Z88.5 Allergy status to narcotic agent; Z91.013 Allergy to seafood; X58.XXXA Exposure to other specified factors, initial encounter; Y93.89 Activity, other specified; Y92.89 Other specified places as the place of occurrence of the external cause; Y99.8 Other external cause status
CPT/HCPCS: 76830; 76856; 81001; 87491; 87591; 99285; Q0111

== ENCOUNTER 2017-05-27 12:15 | Emergency (ER) | payer SELFPAY ==
[2017-05-27] MEDS: fentaNYL PF VIAL 100 MCG/2 ML VIAL IM (13:26)
== END 2017-05-27 15:03 | disposition home or self-care (01) ==
LOC: ER 12:15
DX: M47.816 Spondylosis without myelopathy or radiculopathy, lumbar region (principal); M17.12 Unilateral primary osteoarthritis, left knee; E11.9 Type 2 diabetes mellitus without complications; I10 Essential (primary) hypertension; K58.9 Irritable bowel syndrome, unspecified; G89.29 Other chronic pain; Z88.5 Allergy status to narcotic agent; Z91.013 Allergy to seafood; Z88.2 Allergy status to sulfonamides; Z88.1 Allergy status to other antibiotic agents; W18.39XA Other fall on same level, initial encounter; Y93.89 Activity, other specified; Y92.89 Other specified places as the place of occurrence of the external cause; Y99.8 Other external cause status
CPT/HCPCS: 72100; 73564; 96372; 99284; J3010